=== PATIENT | female | born 1990 | race Caucasian/White ===

== ENCOUNTER → 2019-12-25 | Outpatient (CLI) | payer SELFPAY ==
--- NOTE | 2019-12-25 12:23 | Diagnostic Imaging Report ---
PROCEDURE: US Hepatic (Liver). TECHNIQUE: Multiple real-time grayscale images were obtained over the right upper quadrant in various projections. INDICATION: Hepatitis. COMPARISON: None available. FINDINGS: The liver is enlarged measuring 21 cm in length. There is no focal hepatic mass. The main portal vein is patent with antegrade flow. IVC is patent. Hepatic veins are also patent. The gallbladder is distended without gallstones, wall thickening, or pericholecystic fluid. The common bile duct measures up to 0.3 cm in diameter. No intrahepatic biliary dilation. The visualized portions of the pancreas are normal. Portions of the head and tail are obscured by overlying bowel gas. The right kidney is normal in size. No hydronephrosis, shadowing calculi, or suspicious mass lesion. IMPRESSION: 1. Mild hepatomegaly. No features of cirrhosis or focal liver mass. 2. Normal gallbladder and bile ducts. Dictated by: Dictated on workstation # [id number]
== END ==
LOC: RAD 09:07
PROVIDERS: ATTEND Registered Nurse
DX: K75.9 Inflammatory liver disease, unspecified (principal); R16.0 Hepatomegaly, not elsewhere classified
CPT/HCPCS: 76705